=== PATIENT | male | born 1985 | race Caucasian/White ===

== ENCOUNTER → 2017-03-21 | Outpatient (CLI) | payer BC ==
[~2017-03-21] MED LIST: LRT5 PO
--- NOTE | 2017-03-21 09:05 | DIAGNOSTIC IMAGING REPORT ---
ABDOMINAL ULTRASOUND COMPLETE HISTORY: Pain. Nausea. E806. COMPARISON: 02/17/2015 FINDINGS: Pancreas: The pancreas demonstrates a normal echotexture. Liver: Unremarkable. Gallbladder: No gallbladder wall thickening. No gallstones. Trace gallbladder sludge CBD: 3 mm Kidneys: No hydronephrosis. Spleen: Normal in size. Aorta: Normal in caliber. IVC: Patent. IMPRESSION: Trace gallbladder sludge. Otherwise negative study Electronically signed by: Antonio Champion M.D. 03/21/2017 9:03 AM Dictated Date/Time: 03/21/2017 9:02 AM
== END | disposition home or self-care (01) ==
LOC: C.ULTRBC 08:11
PROVIDERS: ATTEND Family Medicine
DX: E80.6 Other disorders of bilirubin metabolism (principal); R11.0 Nausea; R10.9 Unspecified abdominal pain